=== PATIENT | female | born 1975 | race Caucasian/White ===

== ENCOUNTER 2017-03-06 15:00 | Emergency (ER) | payer SELFPAY ==
[~2017-03-06] VITALS: Ht 160 cm; Wt 70.0 kg
[2017-03-06] MEDS ORDERED: SODIUM CHLORIDE 0.9% 1,000 ML IV ONE (17:39)
[2017-03-06 18:25] LABS: CLARITY URINE CLEAR (CLEAR); COLOR URINE YELLOW (YELLOW); KETONES URINE NEGATIVE (NEGATIVE); LEUKOCYTE ESTERASE URINE NEGATIVE (NEGATIVE); NITRITE URINE NEGATIVE (NEGATIVE); OCCULT BLOOD URINE NEGATIVE (NEGATIVE); PH URINE 7.5 (4.5-8.0); PROTEIN URINE NEGATIVE (NEGATIVE); SPECIFIC GRAVITY URINE 1.011 (1.005-1.030); UROBILINOGEN URINE 0.2 E.U./dL (0.2-1.0)
[2017-03-06 18:28] LABS: BASOPHILS % 0.8 % (0.0-2.0); EOSINOPHILS % 0.3 % (0.0-5.0); HEMATOCRIT. 24.3 % (36.0-48.0); HEMOGLOBIN. 7.1 g/dL (12.0-16.0); LYMPHOCYTES % 12.6 % (20.0-50.0); MEAN CORPUSCULAR VOLUME 61.4 fL (81.0-99.0); MEAN PLATELET VOLUME 7.3 fl (7.4-10.4); MONOCYTES % 4.2 % (2.0-8.0); NEUTROPHILS % 82.1 % (40.0-76.0); PLATELET 639 x1000/uL (130-400); RED BLOOD CELL COUNT 3.96 mill/uL (4.2-5.4); RED CELL DISTRIBUTION WIDTH 19.1 % (11.6-14.6)
[2017-03-06 18:32] LABS: CHLORIDE 104 mEq/L (98-107)
[2017-03-06 18:41] LABS: CARBON DIOXIDE 24 mEq/L (21-32)
[2017-03-06 19:19] LABS: PLATELET ESTIMATE MARKEDLY INCREASED
[2017-03-06 21:20] VITALS: BP 153/58
== END 2017-03-06 23:45 | disposition home or self-care (01) ==
LOC: ER 15:06
DX: A08.4 Viral intestinal infection, unspecified (principal); D64.9 Anemia, unspecified
CPT/HCPCS: 36415; 80053; 81003; 81025; 83690; 85025; 96360; 99284; J7030; Z7610